=== PATIENT | male | born 1945 | race Caucasian/White ===

== ENCOUNTER 2016-09-07 17:00 | Emergency (ER) | payer MEDICARE ==
[2016-09-07 13:38] LABS: BASOPHILS 0.5 %; BASOPHILS ABSOLUTE 0.03 10/3/uL (0.0-0.16); EOSINOPHILS 1.6 %; HEMOGLOBIN 13.6 g/dL (13.6-17.8); IMMATURE GRANULOCYTES 0.2 %; IMMATURE GRANULOCYTES ABSOLUTE 0.01 10/3/uL (0.0-0.11); LYMPHOCYTES 24.8 %; LYMPHOCYTES ABSOLUTE 1.55 10/3/uL (0.67-4.30); MEAN CORPUS HGB CONC 32.7 g/dL (32.0-36.0); MEAN CORPUSCULAR HEMOGLOB 29.9 pg (26.0-34.0); MEAN CORPUSCULAR VOLUME 91.4 fL (80-100); MEAN PLATELET VOLUME 10.2 fL (9.2-13.0); MONOCYTES ABSOLUTE 0.75 10/3/uL (0.21-1.20); NEUTROPHILS 60.9 %; PLATELET COUNT 282 10/3/uL (150-400); RBC DISTRIBUTION WIDTH 13.3 % (12.0-16.0); RED CELL COUNT 4.55 10/6/uL (4.7-6.1); WHITE BLOOD CELLS 6.2 10/3/uL (4.5-10.5)
[2016-09-07 13:39] LABS: HEMATOCRIT 41.6 % (40.0-51.0); MANUAL DIFF NO %
[2016-09-07 13:46] LABS: PARTIAL THROMBO TIME 30.9 SEC (22.5-37.2); PROTIME (NOT ORD) 13.3 SEC (12.0-14.5)
[2016-09-07 13:54] LABS: BUN (BLOOD UREA NITROGEN) 16 MG/DL (6-23); CALCIUM, SERUM 9.1 MG/DL (8.5-10.4); CHEST PAIN PROFILE TAT 0 Hrs 22 Mins; CHLORIDE, SERUM 101 MMOL/L (96-112); CO2 (CARBON DIOXIDE) 31 MMOL/L (24-34); CREATININE 0.82 MG/DL (0.70-1.30); GFR AFRICAN AMERICAN 105 ML/MIN (>=60); GFR NON AFRICAN AMERICAN 91 ML/MIN (>=60); GLUCOSE, SERUM 107 MG/DL (60-99); POTASSIUM, SERUM 4.3 MMOL/L (3.5-5.3); SODIUM, SERUM 141 MMOL/L (135-148); TROPONIN I <0.02 NG/ML (<0.05)
[2016-09-09 08:56] LABS: BE (BASE EXCESS) 4.7 MEQ/L (0 +/- 2.5); CARBOXYHEMOGLOBIN 1.2 % (0-3); HCO3 (ACTUAL BICARBONATE) 29.6 MEQ/L (23-27); INSTRUMENT SERIAL # 8087; METHEMOGLOBIN 0.2 % (0-3); PCO2 (CO2 TENSION) 45 MMHG (35-45); PO2 (O2 TENSION) 94 MMHG (79-93); pH 7.44 (7.37-7.43)
[2016-09-09 08:57] LABS: ALLENS TEST Pos; DEVICE NC; HEMOBLOGIN CONTENT 13.4 G/DL (14-18); O2 CONTENT 18.2 VOL% (18-24); SAMPLE Arterial
== END 2016-09-07 17:01 | disposition home or self-care (01) ==
LOC: ER 17:00
PROVIDERS: Emergency Medicine; Physician Assistant
DX: J44.1 Chronic obstructive pulmonary disease with (acute) exacerbation (principal); Z87.891 Personal history of nicotine dependence; Z88.6 Allergy status to analgesic agent
CPT/HCPCS: 36600; 71020; 80048; 82805; 83735; 84484; 85025; 85610; 85730; 93005; 94640; 96374; 99285